=== PATIENT | female | born 1950 | race Caucasian/White ===

== ENCOUNTER 2016-12-17 07:13 | Day surgery (SDC) | payer BC ==
[2016-12-11 13:37] LABS: BASOPHILS 0.7 %; BASOPHILS ABSOLUTE 0.02 10/3/uL (0.0-0.16); EOSINOPHILS 5.2 %; EOSINOPHILS ABSOLUTE 0.16 10/3/uL (0.0-0.53); HEMOGLOBIN 10.2 g/dL (12.0-16.0); IMMATURE GRANULOCYTES 2.6 %; IMMATURE GRANULOCYTES ABSOLUTE 0.08 10/3/uL (0.0-0.11); LYMPHOCYTES 25.2 %; LYMPHOCYTES ABSOLUTE 0.77 10/3/uL (0.67-4.30); MANUAL DIFF NO %; MEAN CORPUSCULAR HEMOGLOB 33.4 pg (26.0-34.0); MEAN CORPUSCULAR VOLUME 98.4 fL (80-100); MEAN PLATELET VOLUME 10.3 fL (9.2-13.0); MONOCYTES 18.7 %; MONOCYTES ABSOLUTE 0.57 10/3/uL (0.21-1.20); NEUTROPHILS 47.6 %; NEUTROPHILS ABSOLUTE 1.45 10/3/uL (2.02-8.40); PLATELET COUNT 195 10/3/uL (150-400); RBC DISTRIBUTION WIDTH 13.5 % (12.0-16.0); RED CELL COUNT 3.05 10/6/uL (4.0-5.6); WHITE BLOOD CELLS 3.1 10/3/uL (4.5-10.5)
[2016-12-11 13:50] LABS: BUN (BLOOD UREA NITROGEN) 30 MG/DL (6-23); CALCIUM, SERUM 8.8 MG/DL (8.5-10.4); CHLORIDE, SERUM 101 MMOL/L (96-112); CO2 (CARBON DIOXIDE) 25 MMOL/L (24-34); GFR AFRICAN AMERICAN 61 ML/MIN (>=60); GFR NON AFRICAN AMERICAN 53 ML/MIN (>=60); GLUCOSE, SERUM 93 MG/DL (60-99); POTASSIUM, SERUM 4.3 MMOL/L (3.5-5.3); SODIUM, SERUM 137 MMOL/L (135-148)
--- NOTE | ~2016-12-17 | OP ---
Record Of Operation [facility] [address] [place]. [address] NAME: EMEKA FOX : 54 STATUS : [facility]#: [id number] AGE: 66 ADM/REG DATE : 12/17/16 MR#: [id number] REPORT SERV DATE: 12/17/16 DICTATED BY: ROSEY LARKIN DATE: 12/17/16 REPORT STATUS : Draft TRANSCRIBED BY: MODL DATE: 12/17/16 DATE OF PROCEDURE: 12/17/2016 PREOPERATIVE DIAGNOSIS: History of lymphoma with desire for Port-A-Cath removal. POSTOPERATIVE DIAGNOSIS: History of lymphoma with desire for Port-A-Cath removal. PROCEDURE: Removal of right subclavian vein Port-A-Cath. ANESTHESIA: IV sedation with local. SURGEON: Rosey Larkin M.D. [employer]ER: Alfonso. COMPLICATIONS: None. DRAINS: None. ESTIMATED BLOOD LOSS: 10 mL. OPERATIVE TECHNIQUE: The patient was brought to the operating room and placed on the table in supine position. She had preoperative IV sedation, and was prepped and draped in sterile fashion, and time-out was completed. Local anesthesia was instilled around the previous incision, and a field block was completed around the Port-A-Cath. The 15-blade knife was used to make an elliptical incision around the old scar. The incision was carried through the subcutaneous tissues, and the old incision was excised and removed. The dissection continued and dissected down to the level of the Port-A-Cath reservoir which was then excised from the chest wall and dissected to the catheter tunnel site. The catheter was then removed from the vein as the tunnel track was ligated with a [id number] Vicryl stitch 3-0 suture. The wound was thoroughly irrigated and hemostasis was noted. Subcutaneous tissues were reapproximated using running 3-0 Vicryl suture followed by a running Monocryl subcuticular stitch. Dermabond was applied. She was taken to the recovery room in stable condition. All sponge and needle counts reported correct. /SASHA Rosey Larkin M.D. / [id number] CC: Rosey Larkin M.D. Record Of Operation [address] [place]. [address] NAME: EMEKA FOX : 54 STATUS : [facility] PAT#: [id number] AGE: 66 ADM/REG DATE : 12/17/16 MR#: [id number] REPORT SERV DATE: 12/17/16 DICTATED BY: ROSEY LARKIN DATE: 12/17/16 REPORT STATUS : Draft TRANSCRIBED BY: MODL DATE: 12/17/16 Justyn Stanton III, M.D.
[~2016-12-17 07:13] MED LIST: ADVIL PO; ALLOPURINOL PO; AMB5 PO; ASA5GR PO; ASAB PO; ASABAYER PO; ASCRIPTIN PO; AUG875 PO; BACDS PO; CITRACAL PO; CLARIT10 PO; COMP10B PO; COSOPT OPH; CYANO1000T SL; DITRO5 PO; FAMOTIDINE PO; FLONASE NAS; HCTZ PO; HYDROCHLOROT25 MG PO; IBU800 PO; KLOR-CON M2020 MEQ PO; LIPITOR20 PO; LISINOPRIL40 MG PO; LOPID6 PO; MEDROLPAK4 PO; MUCO20%4ML INH; MULTIVIT/MIN PO; NEULASTA SC; NORV10 PO; NORV5 PO; NORVASC PO; OTC ANTIHISTAMINE PO; OTC EYE DROPS OPH; PEPCID COMPLETE PO; PRAVACHOL40 MG PO; PRAVASTATIN PO; PRED50B PO; PROVENT20 INH; STOOL SOFTEN240 MG PO; SYN075 PO; TOPXL25 PO; TRAZ50 PO; TRAZODONE PO; VITAMIN B-121000 MC1 SL; VITAMIN D31000 UNIT PO; XALAT OPH; Z-PAK PO; Z100 PO; Z300 PO; ZESTRIL40 MG PO; ZOFRANODT8 PO
== END 2016-12-17 11:06 | disposition home or self-care (01) ==
LOC: SDC 07:13
PROVIDERS: Surgery
PROC: 0JPT0XZ Removal of Tunneled Vascular Access Device from Trunk Subcutaneous Tissue and Fascia, Open Approach (ICD-10-PCS; principal; 2016-12-17 09:00)
DX: Z45.2 Encounter for adjustment and management of vascular access device (principal); I10 Essential (primary) hypertension; E78.5 Hyperlipidemia, unspecified; E66.9 Obesity, unspecified; F32.9 Major depressive disorder, single episode, unspecified; G47.33 Obstructive sleep apnea (adult) (pediatric); Z79.82 Long term (current) use of aspirin; Z88.2 Allergy status to sulfonamides; Z79.899 Other long term (current) drug therapy; Z85.72 Personal history of non-Hodgkin lymphomas; Z98.890 Other specified postprocedural states
CPT/HCPCS: 80048; 85025; 93005; J0690; J2250; J2405; J3010